=== PATIENT | female | born 1950 | race Caucasian/White ===

== ENCOUNTER 2018-02-21 09:35 | Inpatient (IN) | payer MEDICARE ==
[~2018-02-21] VITALS: Ht 167.6 cm; Wt 92.5 kg
[2018-02-21] VITALS (10 sets, daily range): BP systolic 91–142; BP diastolic 58–98
--- NOTE | ~2018-02-21 | O ---
[place], [place] OPERATIVE NOTE NAME: RASHEL TREVINO UNIT #: [id number] ROOM: 408 DOCTOR: ESE ERWIN MD BIRTHDATE: [birth year] DOS: 02/24/2018 PROCEDURE: ANALIA directed electrical cardioversion of atrial fibrillation. The patient underwent ANALIA-guided cardioversion of atrial fibrillation. The patient was consented. The patient underwent anesthesia by Anesthesiology with propofol. The patient had ANALIA, which showed no left atrial or left atrial appendage thrombus. The patient was cardioverted using 200 joules of synchronized electricity to sinus without complication. ESE ERWIN MD CM:OPRECORD:OPERATIVE NOTE [id number] ESE ERWIN MD 02/24/18 1749 interface
--- NOTE | ~2018-02-21 | EKG ---
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
[2018-02-21 10:01] LABS: BASO # 0.1 10*3/uL (0.0-0.1); BASO % 0.5 % (0.0-1.0); EOS # 0.1 10*3/uL (0.0-0.4); EOS % 0.7 % (1.0-4.0); HEMOGLOBIN 12.1 g/dl (12.0-16.0); LYMPH # 1.9 10*3/uL (1.3-4.4); LYMPH % 12.8 % (27.0-41.0); MEAN CORPUSCULAR HGB 27.4 pg (27.0-31.0); MEAN CORPUSCULAR HGB CONC 31.8 g/dl (33.0-37.0); MEAN PLATELET VOLUME 10.2 fl (9.6-12.3); MONO # 1.2 10*3/uL (0.1-1.0); MONO % 8.2 % (3.0-9.0); NEUT # 11.5 10*3/uL (2.3-7.9); NEUT % 76.9 % (47.0-73.0); PLATELET COUNT AUTOMATED 209 10*3/uL (130-400); RED BLOOD COUNT 4.42 10*6/uL (4.10-5.10); RED CELL DISTRI WIDTH 15.3 % (0-14.5)
[2018-02-21 10:14] LABS: ACT PARTIAL THROMBO TIME 24.5 SECONDS (20.8-31.5)
[2018-02-21 10:46] LABS: ALBUMIN 2.7 gm/dl (3.1-4.5); ALKALINE PHOSPHATASE 93 U/L (45-117); BUN 20 mg/dl (7-24); CHLORIDE 111 mmol/L (98-107); CREATININE 1.37 mg/dL (0.55-1.02); LIPASE 267 U/L (73-393); SGOT/AST 20 IU/L (3-35); SGPT/ALT 35 U/L (12-78); SODIUM 142 mmol/L (136-145)
[2018-02-21 10:50] LABS: TROPONIN I < 0.015 ng/ml (<0.045)
[2018-02-21] MEDS ORDERED: DULE1ARO1 INH (13:07)
[2018-02-21] MEDS ORDERED: PRILOSEC20 M1 PO (13:07)
[2018-02-21] MEDS ORDERED: SINGULAIR10 M1 PO (13:07)
[2018-02-21] MEDS ORDERED: FLONASE ALLERG9.9 ML NAS (13:07)
[2018-02-21] MEDS ORDERED: TOPROL XL25 MG PO (13:08)
[2018-02-21] MEDS ORDERED: PROAIR HFA8.5 GM INH (13:08)
[2018-02-21] MEDS ORDERED: ASPIRIN CHEWABL81 MG PO (13:08)
[2018-02-21 16:46] LABS: BILIRUBIN NEGATIVE (NEGATIVE); BLOOD 3+ (NEGATIVE); CLARITY CLEAR (CLEAR); COLOR YELLOW (YELLOW); GLUCOSE NEGATIVE (NEGATIVE); KETONE NEGATIVE (NEGATIVE); LEUKO ESTERASE NEGATIVE (NEGATIVE); NITRITE NEGATIVE (NEGATIVE); SPECIFIC GRAVITY <= 1.005 (1.005-1.030); UROBILINOGEN 0.2 E.U./dl (0.2-1.0)
[2018-02-21 16:53] LABS: RBC 21-30 rbc/hpf (0-2); WBC 0-2 wbc/hpf (0-5)
[2018-02-22] VITALS (10 sets, daily range): BP systolic 124–146; BP diastolic 62–90
[2018-02-22 06:17] LABS: BASO # 0.1 10*3/uL (0.0-0.1); BASO % 0.5 % (0.0-1.0); EOS # 0.1 10*3/uL (0.0-0.4); EOS % 0.9 % (1.0-4.0); HEMATOCRIT 36.4 % (37.0-47.0); HEMOGLOBIN 11.5 g/dl (12.0-16.0); LYMPH # 1.9 10*3/uL (1.3-4.4); LYMPH % 16.7 % (27.0-41.0); MEAN CELL VOLUME 85.6 fl (81.0-99.0); MEAN CORPUSCULAR HGB 27.1 pg (27.0-31.0); MEAN CORPUSCULAR HGB CONC 31.6 g/dl (33.0-37.0); MEAN PLATELET VOLUME 10.9 fl (9.6-12.3); MONO # 1.2 10*3/uL (0.1-1.0); MONO % 10.7 % (3.0-9.0); NEUT # 7.8 10*3/uL (2.3-7.9); NEUT % 70.3 % (47.0-73.0); PLATELET COUNT AUTOMATED 172 10*3/uL (130-400); RED BLOOD COUNT 4.25 10*6/uL (4.10-5.10); WHITE BLOOD COUNT 11.1 10*3/uL (4.8-10.8)
[2018-02-22 06:29] LABS: ALBUMIN 2.6 gm/dl (3.1-4.5); CREATININE 1.53 mg/dL (0.55-1.02); FREE T4 1.53 ng/dl (0.76-1.46); PHOSPHOROUS 4.5 mg/dL (2.5-4.9); POTASSIUM 3.7 mmol/L (3.5-5.1); TOTAL PROTEIN 5.7 gm/dL (6.4-8.2)
[2018-02-22 06:34] LABS: THYROID STIM HORMONE (HS) 1.44 uIU/ml (0.358-4.75)
[2018-02-22 07:59] LABS: VITAMIN D, 25-HYDROXY 50.9 ng/mL (30-100)
[2018-02-23] VITALS (8 sets, daily range): BP systolic 100–142; BP diastolic 52–98
[2018-02-23 05:58] LABS: CREATININE 1.35 mg/dL (0.55-1.02); POTASSIUM 3.6 mmol/L (3.5-5.1)
[2018-02-24] VITALS (12 sets, daily range): BP systolic 97–136; BP diastolic 51–78
[2018-02-24 06:28] LABS: CREATININE 1.66 mg/dL (0.55-1.02); PHOSPHOROUS 4.2 mg/dL (2.5-4.9); POTASSIUM 3.6 mmol/L (3.5-5.1)
[2018-02-25] VITALS: BP 130/74
[2018-02-25 08:00] VITALS: BP 128/58
[2018-02-25 08:37] LABS: BASO # 0.1 10*3/uL (0.0-0.1); BASO % 0.6 % (0.0-1.0); EOS # 0.1 10*3/uL (0.0-0.4); EOS % 0.9 % (1.0-4.0); HEMATOCRIT 35.9 % (37.0-47.0); HEMOGLOBIN 11.5 g/dl (12.0-16.0); LYMPH # 1.7 10*3/uL (1.3-4.4); LYMPH % 15.5 % (27.0-41.0); MEAN CELL VOLUME 84.9 fl (81.0-99.0); MEAN CORPUSCULAR HGB 27.2 pg (27.0-31.0); MEAN PLATELET VOLUME 10.1 fl (9.6-12.3); MONO # 1.1 10*3/uL (0.1-1.0); MONO % 9.6 % (3.0-9.0); NEUT % 72.9 % (47.0-73.0); PLATELET COUNT AUTOMATED 191 10*3/uL (130-400); RED BLOOD COUNT 4.23 10*6/uL (4.10-5.10); RED CELL DISTRI WIDTH 14.6 % (0-14.5)
[2018-02-25 08:51] LABS: ALBUMIN 2.8 gm/dl (3.1-4.5); CREATININE 1.5 mg/dL (0.55-1.02); POTASSIUM 3.4 mmol/L (3.5-5.1); TOTAL PROTEIN 5.9 gm/dL (6.4-8.2)
[2018-02-25 12:00] VITALS: BP 126/74
[2018-02-25 16:00] VITALS: BP 116/74
[2018-02-25 20:20] VITALS: BP 132/78
[2018-02-26] VITALS: BP 162/98
[2018-02-26 06:45] LABS: BASO # 0.1 10*3/uL (0.0-0.1); BASO % 0.7 % (0.0-1.0); EOS # 0.1 10*3/uL (0.0-0.4); EOS % 1.4 % (1.0-4.0); HEMATOCRIT 36.2 % (37.0-47.0); HEMOGLOBIN 11.3 g/dl (12.0-16.0); LYMPH # 2.1 10*3/uL (1.3-4.4); LYMPH % 23.1 % (27.0-41.0); MEAN CORPUSCULAR HGB 26.8 pg (27.0-31.0); MEAN CORPUSCULAR HGB CONC 31.2 g/dl (33.0-37.0); MEAN PLATELET VOLUME 10.2 fl (9.6-12.3); MONO # 0.9 10*3/uL (0.1-1.0); MONO % 10.1 % (3.0-9.0); NEUT # 5.8 10*3/uL (2.3-7.9); NEUT % 64.3 % (47.0-73.0); PLATELET COUNT AUTOMATED 175 10*3/uL (130-400); RED BLOOD COUNT 4.21 10*6/uL (4.10-5.10); RED CELL DISTRI WIDTH 14.6 % (0-14.5); WHITE BLOOD COUNT 9.1 10*3/uL (4.8-10.8)
[2018-02-26 07:22] LABS: CREATININE 1.52 mg/dL (0.55-1.02); POTASSIUM 3.9 mmol/L (3.5-5.1)
[2018-02-26 07:46] VITALS: BP 134/62
[2018-02-26] MEDS ORDERED: XARE20MG PO ×2 (10:28→14:15)
[2018-02-26] MEDS ORDERED: TOPROL XL50 M1 PO ×2 (10:28→14:15)
== END 2018-02-26 11:34 | disposition home or self-care (01) | DRG 291 ==
LOC: ED 09:35 → 4E 12:05
PROVIDERS: Emergency Medicine; Family Medicine; Internal Medicine
PROC: B24BZZ4 Ultrasonography of Heart with Aorta, Transesophageal (ICD-10-PCS; principal; 2018-02-24)
PROC: 5A2204Z Restoration of Cardiac Rhythm, Single (ICD-10-PCS; principal; 2018-02-24)
DX: I50.43 Acute on chronic combined systolic (congestive) and diastolic (congestive) heart failure (principal); N17.0 Acute kidney failure with tubular necrosis; R65.11 Systemic inflammatory response syndrome (SIRS) of non-infectious origin with acute organ dysfunction; E43 Unspecified severe protein-calorie malnutrition; I48.92 Unspecified atrial flutter; J44.0 Chronic obstructive pulmonary disease with (acute) lower respiratory infection; J20.9 Acute bronchitis, unspecified; E66.09 Other obesity due to excess calories; I08.1 Rheumatic disorders of both mitral and tricuspid valves; I27.20 Pulmonary hypertension, unspecified; Z82.49 Family history of ischemic heart disease and other diseases of the circulatory system; Z82.3 Family history of stroke; Z80.52 Family history of malignant neoplasm of bladder; Z87.891 Personal history of nicotine dependence; Z88.8 Allergy status to other drugs, medicaments and biological substances; Z79.82 Long term (current) use of aspirin; Z90.710 Acquired absence of both cervix and uterus; Z68.32 Body mass index [BMI] 32.0-32.9, adult

== ENCOUNTER 2018-03-12 11:58 | Inpatient (IN) | payer MEDICARE ==
[2018-03-12] VITALS (13 sets, daily range): BP systolic 116–168; BP diastolic 72–124
[~2018-03-12] VITALS: Ht 167.6 cm; Wt 88.1 kg
--- NOTE | ~2018-03-12 | EKG ---
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1950 Requested By: ERI BENNETT Order Number: [id number] Reading MD: Renu Pichardo MD Measurements Intervals [place] Rate: 145 P: MS: QRS: 3 QRSD: 83 T: 89 QT: 285 QTc: 443 Interpretive Statements Atrial fibrillation Borderline low voltage, extremity leads ST depression, probably rate related Compared to ECG 02/21/2018 09:42:06 ST (T wave) deviation now present Atrial flutter no longer present Early repolarization no longer present Possible ischemia no longer present Electronically Signed On 03-14-2018 10:45:49 PST by Renu Pichardo MD CM:EKGRPT:ELECTROCARDIOGRAM REPORT 1210 1045 ERI PA DRAFT REPORT ERI BENNETT M.D.
--- NOTE | ~2018-03-12 | EKG ---
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
[~2018-03-12 11:58] MED LIST: ASPIRIN CHEWABL81 MG PO; DULE1ARO1 INH; FLONASE ALLERG9.9 ML NAS; PRILOSEC20 M1 PO; PROAIR HFA8.5 GM INH; SINGULAIR10 M1 PO; TOPROL XL25 MG PO; TOPROL XL50 M1 PO; XARE20MG PO
[2018-03-12 12:21] LABS: BASO # 0.1 10*3/uL (0.0-0.1); BASO % 0.9 % (0.0-1.0); EOS # 0.1 10*3/uL (0.0-0.4); EOS % 0.9 % (1.0-4.0); HEMOGLOBIN 12.9 g/dl (12.0-16.0); LYMPH # 2.2 10*3/uL (1.3-4.4); LYMPH % 21.9 % (27.0-41.0); MEAN CELL VOLUME 85.5 fl (81.0-99.0); MEAN CORPUSCULAR HGB 26.3 pg (27.0-31.0); MEAN CORPUSCULAR HGB CONC 30.7 g/dl (33.0-37.0); MEAN PLATELET VOLUME 10.8 fl (9.6-12.3); MONO % 9.3 % (3.0-9.0); NEUT # 6.8 10*3/uL (2.3-7.9); NEUT % 66.4 % (47.0-73.0); PLATELET COUNT AUTOMATED 263 10*3/uL (130-400); RED BLOOD COUNT 4.91 10*6/uL (4.10-5.10); RED CELL DISTRI WIDTH 14.9 % (0-14.5); WHITE BLOOD COUNT 10.2 10*3/uL (4.8-10.8)
[2018-03-12 12:38] LABS: ALKALINE PHOSPHATASE 91 U/L (45-117); BUN 19 mg/dl (7-24); CHLORIDE 110 mmol/L (98-107); CREATININE 1.58 mg/dL (0.55-1.02); POTASSIUM 4.6 mmol/L (3.5-5.1); SGOT/AST 22 IU/L (3-35); SGPT/ALT 23 U/L (12-78); SODIUM 141 mmol/L (136-145); TOTAL PROTEIN 6.4 gm/dL (6.4-8.2)
[2018-03-12 12:39] LABS: TROPONIN I < 0.015 ng/ml (<0.045)
[2018-03-12] MEDS ORDERED: LASIX20 MG PO (15:40)
[2018-03-12] MEDS ORDERED: ATIVAN0.5 MG PO (15:40)
[2018-03-12] MEDS ORDERED: K-TAB20 MEQ PO (15:42)
[2018-03-12 15:49] LABS: ACT PARTIAL THROMBO TIME 33.3 SECONDS (20.8-31.5); INTERNATIONAL NORM RATIO 1.2 (2.0-3.5)
[2018-03-12 15:55] LABS: FREE T4 1.52 ng/dl (0.76-1.46)
--- NOTE | 2018-03-12 15:55 | NUR ---
A 67, admitted to 5E, under the services of IRISH Hermosillo DO with a diagnosis of AFIB W/ RVR . Chief complaint is INCREASE HEART RATE. Patient arrived via bed from ER. Monitor applied. Initial assessment completed. Vital signs taken and recorded. IRISH HERMOSILLO DO notified of admission to the unit. Orders received. See assessment for past medical history, medications and allergies. Patient and/or family oriented to unit. Clothing/patient valuable form completed. PRITI BARRETO
--- NOTE | 2018-03-12 15:55 | NUR ---
NOTIFIED THAT MEDICATIONS ARE VERIFIED.
[2018-03-12 15:56] LABS: TROPONIN I < 0.015 ng/ml (<0.045)
--- NOTE | 2018-03-12 16:41 | NUR ---
ANSWERING SERVICES CALLED STATED MESSAGE WILL BE LEFT FOR DOCTOR.
--- NOTE | 2018-03-12 17:07 | NUR ---
INFORMED OF CONSULT. PATIENT CONDITION PROVIDED, INFORMED OF CURRENT STATUS AND CURRENT MEDICATION ADMINISTRATION. STATED TO KEEP ON THE CARDIZEM DRIP OVER NIGHT AND WILL SEE PATIENT IN THE MORNING.
--- NOTE | 2018-03-12 19:06 | NUR ---
PATIENT RESTING IN BED AT THIS TIME ON LEFT SIDE WITH EYES CLOSED. RESPIRATIONS ARE EASY AND REGULAR. NO DISTRESS IS NOTED. CARDIZEM IS INFUSING INTO LEFT HAND AT 10MG/HR. BED IS IN LOWEST POSITION WITH WHEELS LOCKED. CALL LIGHT IS WITHIN REACH. WILL CONTINUE TO MONITOR.
--- NOTE | 2018-03-12 20:03 | NUR ---
SPOKE WITH DR MEJÍA REGARDING ORDERS FOR CARDIZEM TITRATION. PER DR MEJÍA OK TO TITRATE CARDIZEM FROM 10MG TO 5MG. ONCE HR IS CONTROLLED WITH 5MG CAN TURN CARDIZEM DRIP OFF.
--- NOTE | 2018-03-12 20:08 | NUR ---
PATIENT TITRATED DOWN TO 5MG OF CARDIZEM DRIP. THIS ACTION WAS VERIIED WITH JAY MAHAJAN. WILL CONTINUE TO MONITOR PATIENTS HR.
--- NOTE | 2018-03-12 21:17 | NUR ---
PRN ATIVAN GIVEN AT THIS TIME. PATIENT STATES "IM JUST SO AGITATED. ALL I WANT TO DO IS GET SOME SLEEP AND EVERYONE KEEPS BOTHERING ME. CALLUM ASKED THEM NUMEROUS TIMES TO JUST LEAVE ME ALONE BUT THEY COME IN EVERY SO OFTEN AND AND CHECK MY BLOOD PRESSURE OR MY TEMPERATURE. I JUST WANT TO BE LEFT ALONE" THE REASON FOR VITAL CHECKS AND THE IMPORTANCE OF THEM WERE EXPLAINED TO THE PATIENT. SHE STATES THAT SHE "UNDERSTANDS" AND THAT "HOPEFULLY THIS ATIVAN WILL HELP ME CALM DOWN". WILL EVALUATE EFFECTIVENESS. CALL LIGHT IS WITHIN REACH.
--- NOTE | 2018-03-12 23:02 | NUR ---
CARDIZEM DRIP TITRATED DOWN TO 2.5MG/HR DUE TO HR STAYING 70'S. WILL CONTINUE TO MONITOR. TITRATION WAS VERIFIED WITH JAY MAHAJAN.
[2018-03-13] VITALS: BP 117/86
--- NOTE | 2018-03-13 02:03 | NUR ---
RECIEVED CALL FROM [facility] STATING PATIENTS HR WAS IN THE 40'S. CHECKED ON PATIENT AND DISONTINUED THE IV CARDIZEM. PATIENT STATES THAT SHE IS FEELING WELL AND HAS NO SYMPTOMS OR COMPLAINTS AT THIS TIME. WILL CONTINUE TO MONITOR. DR MCGOWAN NOTIFIED OF HR. PER DR MCGOWAN MONITOR HR AND NOTIFY HIM IF HR DROPS BELOW [address] MEJÍA IN THE MORNING.
--- NOTE | 2018-03-13 06:05 | NUR ---
DR MEJÍA NOTIFIED PATIENT CONVERTED TO NSR AND HR IS SUSTAINING AT 52. NO FURTHER ORDERS AT THIS TIME. DR MEJÍA STATED THAT THE TEAM WOULD BE IN TO SEE PATIENT TODAY.
[2018-03-13 06:29] LABS: BASO # 0.1 10*3/uL (0.0-0.1); BASO % 0.9 % (0.0-1.0); EOS # 0.1 10*3/uL (0.0-0.4); EOS % 0.6 % (1.0-4.0); HEMATOCRIT 39.6 % (37.0-47.0); HEMOGLOBIN 12.4 g/dl (12.0-16.0); LYMPH # 2.2 10*3/uL (1.3-4.4); LYMPH % 22.1 % (27.0-41.0); MEAN CELL VOLUME 84.4 fl (81.0-99.0); MEAN CORPUSCULAR HGB 26.4 pg (27.0-31.0); MEAN CORPUSCULAR HGB CONC 31.3 g/dl (33.0-37.0); MEAN PLATELET VOLUME 11.2 fl (9.6-12.3); MONO # 0.9 10*3/uL (0.1-1.0); MONO % 9.1 % (3.0-9.0); NEUT # 6.6 10*3/uL (2.3-7.9); NEUT % 66.7 % (47.0-73.0); PLATELET COUNT AUTOMATED 244 10*3/uL (130-400); RED BLOOD COUNT 4.69 10*6/uL (4.10-5.10); RED CELL DISTRI WIDTH 14.7 % (0-14.5); WHITE BLOOD COUNT 9.9 10*3/uL (4.8-10.8)
[2018-03-13 06:43] LABS: ALBUMIN 3.1 gm/dl (3.1-4.5); CREATININE 1.69 mg/dL (0.55-1.02); PHOSPHOROUS 4.1 mg/dL (2.5-4.9); POTASSIUM 4.8 mmol/L (3.5-5.1); TOTAL PROTEIN 6.2 gm/dL (6.4-8.2)
[2018-03-13 08:00] VITALS: BP 110/64
--- NOTE | 2018-03-13 11:09 | NUR ---
Baker Bench in to talk to patient. Patient states lives at HOME with FRIEND. There are 3 steps in the home. Physician: MODESTO JIN Pharmacy: [facility] health services: [employer] [facility] Patient's level of ADLs: INDEPENDENT Patient has working utilities: YES DME: NONE Follow-up physician's appointment after d/c: WILL BE MADE BY HOSPITALIST NURSE DIRECTOR ON DISCHARGE Does patient want to access PORTAL?: NO Discharge plan PT STATES SHE LIVES HOME WITH A FRIEND AND HAS [employer] [facility]. PT STATES SHE PLANS TO RETURN HOME WITH [facility] [employer] [facility]. WILL CONTINUE TO FOLLOW. MARCOS JASON
[2018-03-13 12:00] VITALS: BP 142/95
--- NOTE | 2018-03-13 13:06 | NUR ---
patient being discharged to home with [facility]. Received resume order, faxed clinicals.
[2018-03-13 16:00] VITALS: BP 149/76
[2018-03-13] MEDS ORDERED: ROPINIROLE HY0.25 MG PO (16:47)
--- NOTE | 2018-03-13 19:37 | NUR ---
PATIENT RESTING ON LEFT SIDE WITH EYES CLOSED. RESPIRATIONS ARE EASY AND REGULAR. NO DISTRESS IS NOTED. CALL LIGHT IS WITHIN REACH. BED IS IN LOWEST POSITION WITH WHEELS LOCKED. WILL CONTINUE TO MONITOR.
[2018-03-13 20:00] VITALS: BP 142/66
[2018-03-14] VITALS: BP 154/102
--- NOTE | 2018-03-14 00:28 | NUR ---
SPOKE WITH DR MCCARTNEY REGARDING PATIENTS HEART RATE OF 57 AND BLOOD PRESSURE MANUALLY 154/102. PER DR GILLIAM CALL CARDIOLOGY TO SEE WHAT THEY WOULD LIKE TO DO.
--- NOTE | 2018-03-14 00:34 | NUR ---
CARDIOLOGY ANSWERING SERVICE NOTIFIED OF MESSAGE. AWAITING CALL BACK.
--- NOTE | 2018-03-14 00:36 | NUR ---
SPOKE WITH DR HECK REGARDING LOW HR AND ELEVATED BP. PER DR HECK START PATIENT ON NORVAC 5MG ONE DOSE NOW AND DAILY. RECHECK BP.
[2018-03-14 02:46] VITALS: BP 152/84
[2018-03-14 08:24] LABS: BASO # 0.1 10*3/uL (0.0-0.1); EOS # 0.1 10*3/uL (0.0-0.4); EOS % 0.9 % (1.0-4.0); HEMATOCRIT 39.6 % (37.0-47.0); HEMOGLOBIN 12.3 g/dl (12.0-16.0); LYMPH # 2.4 10*3/uL (1.3-4.4); LYMPH % 25.2 % (27.0-41.0); MEAN CELL VOLUME 83.9 fl (81.0-99.0); MEAN CORPUSCULAR HGB 26.1 pg (27.0-31.0); MEAN CORPUSCULAR HGB CONC 31.1 g/dl (33.0-37.0); MONO # 0.9 10*3/uL (0.1-1.0); MONO % 9.5 % (3.0-9.0); NEUT # 5.9 10*3/uL (2.3-7.9); NEUT % 62.2 % (47.0-73.0); PLATELET COUNT AUTOMATED 219 10*3/uL (130-400); RED BLOOD COUNT 4.72 10*6/uL (4.10-5.10); RED CELL DISTRI WIDTH 14.6 % (0-14.5); WHITE BLOOD COUNT 9.6 10*3/uL (4.8-10.8)
[2018-03-14 08:57] LABS: CREATININE 2.23 mg/dL (0.55-1.02); POTASSIUM 4.3 mmol/L (3.5-5.1)
[2018-03-14 10:05] VITALS: BP 132/68
[2018-03-14 12:00] VITALS: BP 149/77
--- NOTE | 2018-03-14 13:45 | NUR ---
Discharge instructions reviewed with patient/family. Patient receptive and verbalizes understanding. Follow-up care arranged. Written instructions given to patient/family. DISPUTE RESOLUTION SPECIALIST REMOVED, IV REMOVED WITH MINIMAL BLEEDING. DRY STERILE DRESSING APPLIED TO SITE. JAY FLORES
--- NOTE | 2018-03-14 14:05 | NUR ---
PATIENT OFF THE FLOOR VIA WHEELCHAIR WITH ESCORTED BY AIDE AT THIS TIME. ALL BELONGINGS SENT WITH PATIENT.
== END 2018-03-14 14:05 | disposition home health service (06) | DRG 308 ==
LOC: ED 11:58 → 5E 13:45 → EDHOLD 13:45 → 5E 14:00
PROVIDERS: Emergency Medicine; Internal Medicine; Student in an Organized Health Care Education/Training Program; ADMIT Internal Medicine
DX: I48.0 Paroxysmal atrial fibrillation (principal); J96.00 Acute respiratory failure, unspecified whether with hypoxia or hypercapnia; N17.0 Acute kidney failure with tubular necrosis; E44.0 Moderate protein-calorie malnutrition; I50.22 Chronic systolic (congestive) heart failure; I27.20 Pulmonary hypertension, unspecified; J41.0 Simple chronic bronchitis; E87.8 Other disorders of electrolyte and fluid balance, not elsewhere classified; R73.9 Hyperglycemia, unspecified; R00.1 Bradycardia, unspecified; N18.9 Chronic kidney disease, unspecified; Z96.652 Presence of left artificial knee joint; K21.9 Gastro-esophageal reflux disease without esophagitis; E66.9 Obesity, unspecified; I34.0 Nonrheumatic mitral (valve) insufficiency; I36.1 Nonrheumatic tricuspid (valve) insufficiency; Z90.710 Acquired absence of both cervix and uterus; Z90.722 Acquired absence of ovaries, bilateral; Z87.891 Personal history of nicotine dependence; Z82.3 Family history of stroke; Z88.5 Allergy status to narcotic agent; Z82.49 Family history of ischemic heart disease and other diseases of the circulatory system; Z80.52 Family history of malignant neoplasm of bladder; Z83.6 Family history of other diseases of the respiratory system; Z79.899 Other long term (current) drug therapy; Z68.31 Body mass index [BMI] 31.0-31.9, adult

== ENCOUNTER → 2018-06-03 | Outpatient (CLI) | payer MEDICARE ==
[~2018-06-03] MED LIST changes: +ATIVAN0.5 MG PO; +K-TAB20 MEQ PO; +LASIX20 MG PO; +ROPINIROLE HY0.25 MG PO
--- NOTE | ~2018-06-03 | PF ---
[place], [place] PULMONARY FUNCTION TEST NAME: RASHEL TREVINO UNIT #: [id number] ROOM: DOCTOR: WILFREDO GUADARRAMA MD,KIRTI BIRTHDATE: [birth year] DOS: 06/05/2018 The test was ordered by HISTORY: The patient is a 67-year-old female, height of 66 inches, weight of 205 pounds. Testing was done for assessment and amiodarone treatment. The patient reported symptoms of shortness of breath with exertion, productive cough, rare wheezing tobacco use. The patient noted previously half a pack of cigarettes per day for 15 years. Tobacco cessation was reported 13 years ago. SPIROMETRY: FVC 1.56 liters as 49% predicted value, FEV1 of 0.97 liters, 40% predicted value. The ratio of FEV1/FVC 63%. The patient refused to have post-bronchodilator testing performed. The lung diffusion recorded 48% that was severely decreased without correction of carbon monoxide hemoglobin values. FINAL IMPRESSION: The patient current test was noted. Finding suggestive of COPD. If there is a component of bronchial asthma cannot be assessed because of lack of a postbronchodilator testing. Clinical correlation would be advised for the current abnormal lung diffusion, clinical history and radiology data. KIRTI VILLALOBOS MD CM:PFREPORT:PULMONARY FUNCTION TEST 1252 1411 KIRTI GUADARRAMA MD
== END | disposition home or self-care (01) ==
LOC: LAB 08:12
DX: R06.02 Shortness of breath (principal); I48.91 Unspecified atrial fibrillation; Z79.899 Other long term (current) drug therapy

== ENCOUNTER → 2019-04-16 | Outpatient (CLI) | payer MEDICARE ==
[2019-04-16 12:31] LABS: BASO # 0.1 10*3/uL (0.0-0.1); EOS # 0.1 10*3/uL (0.0-0.4); EOS % 1.6 % (1.0-4.0); HEMATOCRIT 30.5 % (37.0-47.0); HEMOGLOBIN 9.4 g/dl (12.0-16.0); LYMPH # 1.7 10*3/uL (1.3-4.4); MEAN CELL VOLUME 83.6 fl (81.0-99.0); MEAN CORPUSCULAR HGB 25.8 pg (27.0-31.0); MEAN CORPUSCULAR HGB CONC 30.8 g/dl (33.0-37.0); MONO # 0.5 10*3/uL (0.1-1.0); MONO % 7.8 % (3.0-9.0); NEUT # 4.5 10*3/uL (2.3-7.9); NEUT % 64.2 % (47.0-73.0); PLATELET COUNT AUTOMATED 218 10*3/uL (130-400); RED BLOOD COUNT 3.65 10*6/uL (4.10-5.10)
[2019-04-16 12:59] LABS: ALBUMIN 3.6 gm/dl (3.1-4.5); CREATININE 1.6 mg/dL (0.55-1.02); FREE T4 1.25 ng/dl (0.76-1.46); POTASSIUM 4.3 mmol/L (3.5-5.1); TOTAL PROTEIN 7.4 gm/dL (6.4-8.2)
[2019-04-16 13:03] LABS: THYROID STIM HORMONE (HS) 1.76 uIU/ml (0.358-4.75)
== END | disposition home or self-care (01) ==
LOC: LAB 12:01
PROVIDERS: Internal Medicine
DX: I12.9 Hypertensive chronic kidney disease with stage 1 through stage 4 chronic kidney disease, or unspecified chronic kidney disease (principal); N18.3 Chronic kidney disease, stage 3 (moderate); E55.9 Vitamin D deficiency, unspecified; E03.9 Hypothyroidism, unspecified

== ENCOUNTER → 2021-07-24 | Outpatient (CLI) | payer MEDICARE ==
[2021-07-24 12:12] LABS: BASO # 0.1 10*3/uL (0.0-0.1); BASO % 0.8 % (0.0-1.0); EOS # 0.2 10*3/uL (0.0-0.4); EOS % 1.6 % (1.0-4.0); LYMPH # 2.1 10*3/uL (1.3-4.4); LYMPH % 19.7 % (27.0-41.0); MEAN CORPUSCULAR HGB CONC 32.6 g/dl (33.0-37.0); MEAN PLATELET VOLUME 9.8 fl (9.6-12.3); MONO # 0.8 10*3/uL (0.1-1.0); MONO % 6.9 % (3.0-9.0); NEUT # 7.6 10*3/uL (2.3-7.9); NEUT % 70.3 % (47.0-73.0); PLATELET COUNT AUTOMATED 224 10*3/uL (130-400); RED BLOOD COUNT 4.13 10*6/uL (4.10-5.10); RED CELL DISTRI WIDTH 13.5 % (0-14.5); WHITE BLOOD COUNT 10.8 10*3/uL (4.8-10.8)
[2021-07-24 12:13] LABS: BILIRUBIN Negative (Negative); BLOOD 3+ (Negative); CLARITY Cloudy (Clear); COLOR Yellow (Yellow); GLUCOSE Negative (Negative); KETONE Negative (Negative); LEUKO ESTERASE 3+ (Negative); NITRITE Negative (Negative); UROBILINOGEN 0.2 E.U./dl (0.0-1.0)
[2021-07-24 12:23] LABS: RBC 21-30 rbc/hpf (0-2)
[2021-07-24 12:24] LABS: BACTERIA 1+; WBC TNTC wbc/hpf (0-5)
[2021-07-24 12:35] LABS: CREATININE 1.64 mg/dL (0.55-1.02); POTASSIUM 4.6 mmol/L (3.5-5.1)
[2021-07-24 12:40] LABS: URINE CREATININE RANDOM 70.7 mg/dL
[2021-07-24 13:18] LABS: VITAMIN D, 25-HYDROXY 35.6 ng/mL (30-100)
== END | disposition home or self-care (01) ==
LOC: RAD 06-07 14:00 → LAB 09:45
PROVIDERS: ATTEND Internal Medicine Nephrology
DX: Z12.31 Encounter for screening mammogram for malignant neoplasm of breast (principal); N18.32 Chronic kidney disease, stage 3b; I50.32 Chronic diastolic (congestive) heart failure; E87.2 Acidosis; I48.20 Chronic atrial fibrillation, unspecified; D63.8 Anemia in other chronic diseases classified elsewhere; E87.5 Hyperkalemia; N64.89 Other specified disorders of breast; M81.0 Age-related osteoporosis without current pathological fracture; Z78.0 Asymptomatic menopausal state